=== PATIENT | female | born 1960 | race Caucasian/White ===

== ENCOUNTER 2020-01-01 07:11 | Outpatient (REF) | payer BC, SELFPAY ==
[2020-01-01 08:06] LABS: MANUAL DIFF FLAG NO
[2020-01-01 08:15] LABS: Basophils Percent Auto 0.7 % (0-2); Eosinophils Absolute Auto 0.2 X10*3/uL (0.0-0.4); Eosinophils Percent Auto 2.8 % (0-4); Hemoglobin 12.8 g/dl (12.0-16.0); Imm Gran Abs Auto 0.02 X10*3/uL (0.00-0.03); Imm Gran Pct Auto 0.4 % (0.0-0.4); Lymphocytes Absolute Auto 1.8 X10*3/uL (1.2-4.9); Mean Corpuscular Hemoglobin 28.3 pg (27.0-33.0); Mean Corpuscular Volume 88.5 fL (80-98); Mean Platelet Volume 10.9 fL (9.4-12.3); Monocytes Absolute Auto 0.5 X10*3/uL (0.1-1.2); Monocytes Percent Auto 9.6 % (2-11); Neutrophils Absolute Auto 2.9 X10*3/uL (2.0-8.3); Neutrophils Percent Auto 53.5 % (45-73); Platelet Count 287 X10*3/uL (160-400); Red Blood Count 4.52 X10*6/uL (4.20-5.50); Red Cell Distribution Width 12.9 % (11.0-16.0); White Blood Count 5.4 X10*3/uL (4.8-10.8)
[2020-01-01 08:37] LABS: Glucose Fasting 107 mg/dL (60-99)
[2020-01-01 08:43] LABS: Anion Gap 11 (12-20); Blood Urea Nitrogen 19 mg/dL (9-16); Carbon Dioxide 28 mmol/L (22-29); Chloride 105 mmol/L (96-108); Cholesterol 224 mg/dL; Estimated Glomerular Filt Rate > 60; Glucose Fasting 107 mg/dL (60-99); HDL Cholesterol 63 mg/dL; Iron 82 mcg/dL (30-160); LDL Cholesterol Calculated 142 mg/dl; Percent Iron Saturation 30 % (15-50); Potassium 4.9 mmol/l (3.3-5.1); Sodium 139 mmol/L (135-145); Total Iron Binding Capacity 269 mcg/dL (228-428); Triglycerides 96 mg/dL; Unsaturated Iron Binding 187 ug/dL
[2020-01-01 09:04] LABS: Ferritin 170 ng/mL (10-250); Vitamin D 25-OH Total 31.1 ng/mL (>30)
== END 2020-01-01 07:12 | disposition home or self-care (01) ==
LOC: HO.LAB 07:11
PROVIDERS: PCP Internal Medicine; Visit Provider Internal Medicine
DX: R53.83 Other fatigue (principal); Z20.828 Contact with and (suspected) exposure to other viral communicable diseases
CPT/HCPCS: 36415; 80048; 80061; 82306; 82728; 82947; 83540; 85025

== ENCOUNTER 2020-02-10 10:52 | Outpatient (REF) | payer BC, SELFPAY | END 2020-02-10 10:53 | disposition home or self-care (01) | LOC: HO.LAB 10:52 | PROVIDERS: Visit Provider Internal Medicine | DX: Z20.828 Contact with and (suspected) exposure to other viral communicable diseases (principal) | CPT/HCPCS: C9803; U0003 ==

== ENCOUNTER 2020-03-15 07:13 | Outpatient (REF) | payer BC, SELFPAY | END 2020-03-15 07:14 | disposition home or self-care (01) | LOC: HO.LAB 07:13 | PROVIDERS: Visit Provider Internal Medicine | DX: Z20.828 Contact with and (suspected) exposure to other viral communicable diseases (principal) | CPT/HCPCS: 36415; C9803; U0003 ==

== ENCOUNTER 2020-04-01 07:08 | Outpatient (REF) | payer BC, SELFPAY ==
[2020-04-01 08:03] LABS: Cholesterol 210 mg/dL; HDL Cholesterol 49 mg/dL; LDL Cholesterol Calculated 134 mg/dl; Triglycerides 135 mg/dL
== END 2020-04-01 07:09 | disposition home or self-care (01) ==
LOC: HO.LAB 07:08
PROVIDERS: PCP Internal Medicine; Visit Provider Internal Medicine
DX: E78.5 Hyperlipidemia, unspecified (principal)
CPT/HCPCS: 36415; 80061

== ENCOUNTER → 2020-04-15 14:42 | Outpatient (BNVA) | payer BC, SELFPAY | PROVIDERS: PCP Internal Medicine; Visit Provider Surgery ==

== ENCOUNTER 2020-05-06 07:25 | Day surgery (SDC) | payer BC, SELFPAY ==
--- NOTE | 2020-05-04 12:59 | HO.ANESPROP2 ---
Documented by User: Sophia Mccullough 05/04/20 13:00 HPI - Anesthesia Eval Consult details Narrative: 60yo F for Colonoscopy PMFSH Active Problems Active Problems: All Active Problems (Updated 04/15/20 @ 15:05 by Angus Mueller MD) Family history of colon cancer in father (Acute) Past Medical History Medical History Family history of colon cancer in father Family History Family History Father History of colon cancer, Onset Age: 65 Mother History of breast cancer, Onset Age: 70 Brother History of melanoma Maternal Aunt History of cancer of small intestine Maternal Aunt History of breast cancer Paternal Uncle History of melanoma Paternal Uncle History of prostate cancer Surgical History Surgical History History of appendectomy Hx of colonoscopy Social History Social History Alcohol intake: never Smoking Status: Never smoker Use of substances other than those prescribed or required for medical reasons: No Have you been hit, kicked, punched, or otherwise hurt by someone within the past year? If so, by whom?: No Advance Directives: No Advance Directives Information Provided: No Meds Allergies Allergy/AdvReac Type Severity Reaction Status Date / Time morphine [MORPHINE] AdvReac Intermediate NAUSEA/OUT Verified 04/15/20 14:49 OF BODY EXPERIENCE bacitracin AdvReac Mild Rash Verified 05/06/20 07:47 ultram Allergy Unknown vomiting Uncoded 01/28/14 00:00 Exam Exam Date and Time: May 04, 2020 1259 Assessment and Plan Assessment Anesthesia Assessment: Chart Reviewed Documented by User: Janie Gorman 05/06/20 09:15 PMFSH Past Medical History Medical History Family history of colon cancer in father Family History Family History Father History of colon cancer, Onset Age: 65 Mother History of breast cancer, Onset Age: 70 Brother History of melanoma Maternal Aunt History of cancer of small intestine Maternal Aunt History of breast cancer Paternal Uncle History of melanoma Paternal Uncle History of prostate cancer Surgical History Surgical History History of appendectomy Hx of colonoscopy Social History Social History Alcohol intake: never Smoking Status: Never smoker Use of substances other than those prescribed or required for medical reasons: No Have you been hit, kicked, punched, or otherwise hurt by someone within the past year? If so, by whom?: No Advance Directives: No Advance Directives Information Provided: No Meds Allergies Allergy/AdvReac Type Severity Reaction Status Date / Time morphine [MORPHINE] AdvReac Intermediate NAUSEA/OUT Verified 04/15/20 14:49 OF BODY EXPERIENCE bacitracin AdvReac Mild Rash Verified 05/06/20 07:47 ultram Allergy Unknown vomiting Uncoded 01/28/14 00:00 Ex[address] Airway Mallampati Class: II TM Dist: >3cm Neck ROM: Full Heart: RRR Lungs: CTA
[2020-05-06 05:55] VITALS: BMI 26.9
[2020-05-06 07:28] VITALS: BP 122/78; PULSE 89; RESP 20; TEMP 36.4; O2SAT 98
[2020-05-06] MEDS: Lactated Ringers 1,000 ML 100 ML IVCONT (07:53)
--- NOTE | 2020-05-06 08:30 | MHC.SHP ---
Pre-Procedural Eval Section B Chief Complaint: Family history of colon cancer in father Allergies: Allergies Allergy/AdvReac Type Severity Reaction Status Date / Time morphine [MORPHINE] AdvReac Intermediate NAUSEA/OUT Verified 04/15/20 14:49 OF BODY EXPERIENCE bacitracin AdvReac Mild Rash Verified 05/06/20 07:47 ultram Allergy Unknown vomiting Uncoded 01/28/14 00:00 Plan I have reviewed the history and physical and performed a pertinent physical examination on my patient. No changes have occurred unless specified.
--- NOTE | 2020-05-06 09:03 | W.PM.OPN ---
Operative Note Operative Note Date of Service: 05/06/20 Narrative: Preop diagnosis: Colon cancer screening, family history of colon cancer Postop diagnosis: As above, with sigmoid diverticulosis Procedure: Colonoscopy Surgeon: Angus Mueller MD The patient is a 60-year-old female with family history of colon cancer. She has therefore been undergoing colonoscopy every 5 years. She understood the technique of colonoscopy. She was aware of the risks, benefits, and alternatives. She was brought to the operating room and placed in left lateral decubitus position under monitored anesthesia care. A full digital rectal was done and there were no palpable anal lesions. The tip of the Olympus colonoscope was gently inserted into the anal orifice and advanced with insufflation all the way to the cecum. The cecum was intubated. The cecum was identified by visualization of the ileocecal valve as well as the appendiceal orifice. The cecal mucosa was unremarkable. The scope was then gradually withdrawn with careful examination of the entire colonic mucosa being done with scope withdrawal. The patient had adequate bowel prep so it was unlikely that any lesion may have been missed. There was note of moderate diverticulosis in the sigmoid. The rectum was reached. There were no lesions seen. The anal canal was unremarkable. The scope was then withdrawn completely with desufflation. The patient tolerated the procedure well. There were no complications noted. She she is to continue to have screening colonoscopy every 5 years because of her family history. Withdrawal time was about 7 minutes.
--- NOTE | 2020-05-06 09:07 | PM.OP ---
Brief Operative Note Date of Service: 05/06/20 Pre-op diagnosis: FH of colon cancer Post-op diagnosis: other (same, with diverticulosos) Procedure: colonoscopy Surgeon: Angus Mueller MD Anesthesia: MAC Estimated blood loss (mL): 0 Pathology: none sent Condition: stable Disposition: PACU
[2020-05-06 09:08] VITALS: BP 97/52; PULSE 81; RESP 20; TEMP 36.3; O2SAT 98
--- NOTE | 2020-05-06 09:15 | HO.POSTANES ---
Post Anesthesia Evaluation Post Anesthesia Evaluation Vital Signs: Vital Signs Temp Pulse Resp BP Pulse Ox 05/06/20 09:08 97.3 F 81 20 97/52 L 98 05/06/20 07:28 97.5 F 89 20 122/78 98 Anesthesia: Monitored Mental Status: Awake Nausea/Vomiting: None Hydration: Adequate Anesthesia-Related Issues: No Anes. Related Issues
[2020-05-06 09:23] VITALS: BP 104/63; PULSE 83; RESP 20; O2SAT 96
[2020-05-06 09:31] VITALS: BP 119/65; PULSE 82; RESP 20; O2SAT 96
[2020-05-06 09:48] VITALS: TEMP 36.5
== END 2020-05-06 10:20 | disposition home or self-care (01) ==
PROVIDERS: PCP Internal Medicine; Visit Provider Surgery
PROC: 0DJD8ZZ Inspection of Lower Intestinal Tract, Via Natural or Artificial Opening Endoscopic (ICD-10-PCS; CPT 45378; principal; 2020-05-06 08:30)
DX: Z12.11 Encounter for screening for malignant neoplasm of colon (principal); Z80.0 Family history of malignant neoplasm of digestive organs; K57.30 Diverticulosis of large intestine without perforation or abscess without bleeding; Z80.3 Family history of malignant neoplasm of breast; Z88.8 Allergy status to other drugs, medicaments and biological substances
CPT/HCPCS: 45378

== ENCOUNTER → 2020-05-19 08:52 | Outpatient (BNVA) | payer BC, SELFPAY | PROVIDERS: PCP Internal Medicine; Visit Provider Surgery ==

== ENCOUNTER 2021-02-21 12:21 | Outpatient (REF) | payer BC, SELFPAY ==
--- NOTE | ~2021-02-21 | XR_ITS ---
EXAMINATION: XR CHEST CLINICAL INFORMATION: Shortness of breath and cough COMPARISON: None TECHNIQUE: 2 views of the chest were obtained. FINDINGS: The cardiac and mediastinal contours are normal. The lungs are clear. There is no pleural effusion or pneumothorax. Bony structures are unremarkable. XR/XR chest 2V IMPRESSION: Unremarkable examination.
== END 2021-02-21 12:22 | disposition home or self-care (01) ==
LOC: HO.LAB 12:21
PROVIDERS: Visit Provider Internal Medicine
DX: R06.02 Shortness of breath (principal); R05.9 Cough, unspecified
CPT/HCPCS: 71046

== ENCOUNTER 2021-06-12 06:49 | Outpatient (REF) | payer BC, SELFPAY ==
[2021-06-12 07:31] LABS: MANUAL DIFF FLAG NO
[2021-06-12 08:32] LABS: Basophils Absolute Auto 0.1 X10*3/uL (0.0-0.2); Eosinophils Absolute Auto 0.1 X10*3/uL (0.0-0.4); Eosinophils Percent Auto 2.4 % (0-4); Hematocrit 41.9 % (37.0-47.0); Hemoglobin 13.6 g/dl (12.0-16.0); Imm Gran Abs Auto 0.01 X10*3/uL (0.00-0.03); Imm Gran Pct Auto 0.2 % (0.0-0.4); Lymphocytes Percent Auto 40.8 % (20-40); Mean Corpuscular HGB Conc 32.5 g/dl (31.0-35.0); Mean Corpuscular Hemoglobin 28.8 pg (27.0-33.0); Mean Corpuscular Volume 88.6 fL (80.0-98.0); Mean Platelet Volume 11.2 fL (9.4-12.3); Monocytes Absolute Auto 0.4 X10*3/uL (0.1-1.2); Monocytes Percent Auto 8.4 % (2-11); Neutrophils Absolute Auto 2.4 x10*3/uL (2.0-8.3); Neutrophils Percent Auto 47.2 % (45-73); Platelet Count 279 X10*3/uL (160-400); Red Blood Count 4.73 X10*6/uL (4.20-5.50)
[2021-06-12 09:04] LABS: Alanine Aminotransferase 18 U/L (0-31); Albumin Level 4.3 g/dL (3.5-5.0); Alkaline Phosphatase 80 U/L (39-117); Anion Gap 12 (12-20); Aspartate Amino Transferase 20 U/L (5-31); Bilirubin Direct 0.4 mg/dL (0.0-0.5); Bilirubin Total 1.1 mg/dL (0.0-1.0); Blood Urea Nitrogen 12 mg/dL (9-16); Carbon Dioxide 27 mmol/L (22-29); Chloride 104 mmol/L (96-108); Cholesterol 242 mg/dL; Glucose Fasting 105 mg/dL (60-99); HDL Cholesterol 55 mg/dL; LDL Cholesterol Calculated 164 mg/dl; Potassium 4.8 mmol/L (3.3-5.1); Sodium 138 mmol/L (135-145); Total Protein 6.9 g/dL (6.5-8.0); Triglycerides 116 mg/dL
[2021-06-15 11:40] LABS: Estimated Glomerular Filt Rate > 60
== END 2021-06-12 06:50 | disposition home or self-care (01) ==
LOC: HO.LAB 06:49
PROVIDERS: PCP Internal Medicine; Visit Provider Internal Medicine
DX: Z00.00 Encounter for general adult medical examination without abnormal findings (principal); R53.83 Other fatigue; E78.5 Hyperlipidemia, unspecified
CPT/HCPCS: 36415; 80051; 80061; 80076; 82565; 82947; 84520; 85025

== ENCOUNTER 2021-09-08 07:56 | Outpatient (REF) | payer BC, SELFPAY ==
[2021-09-08 08:36] LABS: Cholesterol 208 mg/dL; HDL Cholesterol 55 mg/dL; LDL Cholesterol Calculated 136 mg/dl; Triglycerides 89 mg/dL
== END 2021-09-08 07:57 | disposition home or self-care (01) ==
LOC: HO.LAB 07:56
PROVIDERS: PCP Internal Medicine; Visit Provider Internal Medicine
DX: E78.5 Hyperlipidemia, unspecified (principal)
CPT/HCPCS: 36415; 80061

== ENCOUNTER 2023-04-12 09:45 | Outpatient (REF) | payer BC, SELFPAY ==
[2023-04-12 10:18] LABS: MANUAL DIFF FLAG NO
[2023-04-12 10:47] LABS: Basophils Percent Auto 0.9 % (0-2); Eosinophils Absolute Auto 0.2 X10*3/uL (0.0-0.4); Eosinophils Percent Auto 3.2 % (0-4); Hematocrit 42.5 % (37.0-47.0); Hemoglobin 14.1 g/dl (12.0-16.0); Imm Gran Abs Auto 0.01 X10*3/uL (0.00-0.03); Imm Gran Pct Auto 0.2 % (0.0-0.4); Lymphocytes Absolute Auto 1.8 X10*3/uL (1.2-4.9); Lymphocytes Percent Auto 38.8 % (20-40); Mean Corpuscular HGB Conc 33.2 g/dl (31.0-35.0); Mean Corpuscular Hemoglobin 28.6 pg (27.0-33.0); Mean Corpuscular Volume 86.2 fL (80.0-98.0); Monocytes Absolute Auto 0.4 X10*3/uL (0.1-1.2); Monocytes Percent Auto 8.6 % (2-11); Neutrophils Absolute Auto 2.3 x10*3/uL (2.0-8.3); Neutrophils Percent Auto 48.3 % (45-73); Platelet Count 285 X10*3/uL (160-400); Red Blood Count 4.93 X10*6/uL (4.20-5.50); Red Cell Distribution Width 12.4 % (11.0-16.0); White Blood Count 4.7 X10*3/uL (4.8-10.8)
[2023-04-12 11:24] LABS: Alanine Aminotransferase 21 U/L (0-31); Albumin Level 4.2 g/dL (3.5-5.0); Alkaline Phosphatase 81 U/L (39-117); Anion Gap 10 (12-20); Aspartate Amino Transferase 22 U/L (5-31); Bilirubin Direct 0.3 mg/dL (0.0-0.5); Bilirubin Total 0.8 mg/dL (0.0-1.0); Blood Urea Nitrogen 19 mg/dL (9-16); Carbon Dioxide 27 mmol/L (22-29); Chloride 106 mmol/L (96-108); Cholesterol 207 mg/dL (<200); Estimated Glomerular Filt Rate > 60; Glucose Fasting 102 mg/dL (60-99); HDL Cholesterol 59 mg/dL (>40); LDL Cholesterol Calculated 135 mg/dL (<100); Potassium 4.4 mmol/L (3.3-5.1); Sodium 139 mmol/L (135-145); Triglycerides 66 mg/dL (<150)
== END 2023-04-12 09:46 | disposition home or self-care (01) ==
LOC: HO.LAB 09:45
PROVIDERS: PCP Internal Medicine; Visit Provider Internal Medicine
DX: Z00.00 Encounter for general adult medical examination without abnormal findings (principal); R53.83 Other fatigue; E78.5 Hyperlipidemia, unspecified
CPT/HCPCS: 36415; 80051; 80061; 80076; 82565; 82947; 84520; 85025

== ENCOUNTER 2023-09-26 06:49 | Outpatient (REF) | payer BC, SELFPAY ==
--- NOTE | ~2023-09-26 | XR_ITS ---
EXAMINATION: XR CERVICAL SPINE CLINICAL INFORMATION: PAIN, assess for DJD COMPARISON: None available. TECHNIQUE: 3 views of the cervical spine were obtained. FINDINGS: Vertebral body heights are maintained. There is a transverse lucency through the C5 vertebral body. Moderate degenerative disc disease at C5-C6 and mild at C6-C7 with loss intervertebral disc height and marginal osteophytes. There is straightening of the normal cervical lordosis with sagittal alignment are maintained. Mild multilevel facet arthropathy. No significant neural foraminal stenosis. Alignment is maintained at the atlanto-axial articulation. The prevertebral soft tissues are normal. Visualized lung apices are clear. XR/XR cervical spine 4V IMPRESSION: 1. Transverse lucency through the C5 vertebral body could represent a fracture versus artifact versus degenerative change. Clinical correlation for point tenderness would be helpful. 2. Moderate degenerative disc disease at C5-C6 and mild at C6-C7 with loss of intervertebral disc height and marginal osteophytes. These results were discussed with Manolo Lee MD by telephone on 09/26/2023 at 11:44 AM and it was ascertained that the content of the report was understood at the time of direct communication.
== END 2023-09-26 06:50 | disposition home or self-care (01) ==
LOC: HO.XRAY 06:49
PROVIDERS: PCP Internal Medicine; Visit Provider Internal Medicine
DX: M54.2 Cervicalgia (principal)
CPT/HCPCS: 72050

== ENCOUNTER 2024-01-08 09:00 | Outpatient (RCR) | payer BC, SELFPAY | END 2024-02-11 09:58 | disposition home or self-care (01) | LOC: HO.PTCHIC 09:00 | PROVIDERS: PCP Internal Medicine; Visit Provider Internal Medicine | DX: M54.2 Cervicalgia (principal); M47.812 Spondylosis without myelopathy or radiculopathy, cervical region | CPT/HCPCS: 97110; 97161 ==

== ENCOUNTER 2024-05-22 07:40 | Outpatient (REF) | payer BC, SELFPAY ==
[2024-05-22 08:10] LABS: MANUAL DIFF FLAG NO
[2024-05-22 08:23] LABS: Basophils Percent Auto 0.6 % (0-2); Eosinophils Absolute Auto 0.1 X10*3/uL (0.0-0.4); Eosinophils Percent Auto 2.1 % (0-4); Hematocrit 40.7 % (37.0-47.0); Hemoglobin 13.7 g/dl (12.0-16.0); Imm Gran Abs Auto 0.01 X10*3/uL (0.00-0.03); Imm Gran Pct Auto 0.2 % (0.0-0.4); Lymphocytes Percent Auto 38.2 % (20-40); Mean Corpuscular HGB Conc 33.7 g/dl (31.0-35.0); Mean Platelet Volume 10.4 fL (9.4-12.3); Monocytes Absolute Auto 0.5 X10*3/uL (0.1-1.2); Monocytes Percent Auto 10.3 % (2-11); Neutrophils Absolute Auto 2.5 x10*3/uL (2.0-8.3); Neutrophils Percent Auto 48.6 % (45-73); Platelet Count 313 X10*3/uL (160-400); Red Blood Count 4.73 X10*6/uL (4.20-5.50); Red Cell Distribution Width 12.9 % (11.0-16.0); White Blood Count 5.2 X10*3/uL (4.8-10.8)
[2024-05-22 08:53] LABS: Alanine Aminotransferase 20 U/L (0-31); Albumin Level 4.1 g/dL (3.5-5.0); Alkaline Phosphatase 79 U/L (39-117); Anion Gap 13 (12-20); Aspartate Amino Transferase 25 U/L (5-31); Bilirubin Total 0.6 mg/dL (0.0-1.0); Blood Urea Nitrogen 13 mg/dL (9-16); Calcium 8.8 mg/dL (8.4-10.2); Carbon Dioxide 25 mmol/L (22-29); Chloride 107 mmol/L (96-108); Cholesterol 162 mg/dL (<200); Estimated Glomerular Filt Rate > 60; Glucose Fasting 103 mg/dL (60-99); HDL Cholesterol 54 mg/dL (>40); LDL Cholesterol Calculated 94 mg/dL (<100); Potassium 4.1 mmol/L (3.3-5.1); Sodium 141 mmol/L (135-145); Total Protein 7.1 g/dL (6.5-8.0); Triglycerides 73 mg/dL (<150)
== END 2024-05-22 07:41 | disposition home or self-care (01) ==
LOC: HO.LAB 07:40
PROVIDERS: PCP Internal Medicine; Visit Provider Internal Medicine
DX: Z00.00 Encounter for general adult medical examination without abnormal findings (principal); R53.83 Other fatigue; E78.5 Hyperlipidemia, unspecified
CPT/HCPCS: 36415; 80053; 80061; 85025